=== PATIENT | male | born 1965 | race Caucasian/White ===

== ENCOUNTER → 2021-01-06 09:00 | Outpatient (CLI) | payer BC, SELFPAY ==
--- NOTE | ~2021-01-06 | MR_ITS ---
EXAMINATION: MR shoulder LT wo con DATE: 01/06/2021 09:40 INDICATION: Left rotator cuff tear. Left shoulder pain. TECHNIQUE: Magnetic resonance imaging (MRI) of the left shoulder was performed without intravenous co ntrast. Sequences included axial PD-weighted FS FSE, coronal oblique PD-weighted FS FSE and T2-weight ed FS FSE, and sagittal oblique T2-weighted FS FSE and T1-weighted FSE. COMPARISON: None. FINDINGS: Coracoacromial arch: The acromion undersurface is curved in morphology (type II). There is moderate acromioclavicular join t osteoarthritis including inferiorly directed osteophytes. There is mild subacromial/subdeltoid burs itis. Rotator cuff: There is mild supraspinatus and infraspinatus tendinopathy. There is an interstitial tear of distal s upraspinatus tendon measuring 8 mm anterior to posterior by 4 mm proximal to distal by 30% tendon thi ckness. Teres minor tendon is normal. There is mild subscapularis tendinopathy. There is no asymmetri c fatty atrophy of the rotator cuff muscle bellies. Biceps tendon and glenoid labrum: Biceps tendon is in bicipital groove. Intra-articular biceps tendon is normal. The glenoid labrum is normal. Fluid: There is no glenohumeral joint effusion. Bones/cartilage: The glenoid cartilage is normal. The humeral head cartilage is normal. IMPRESSION: 1. Partial-thickness interstitial tear of distal supraspinatus tendon. 2. Moderate acromioclavicular joint osteoarthritis. 3. Mild subacromial/subdeltoid bursitis. Reviewed, dictated and finalized at location A.
== END ==
PROVIDERS: Visit Provider Specialist
DX: M75.102 Unspecified rotator cuff tear or rupture of left shoulder, not specified as traumatic (principal); M75.112 Incomplete rotator cuff tear or rupture of left shoulder, not specified as traumatic; M19.012 Primary osteoarthritis, left shoulder; M75.52 Bursitis of left shoulder
CPT/HCPCS: 73221

== ENCOUNTER → 2023-09-05 16:19 | Outpatient (CLI) | payer BC, SELFPAY ==
--- NOTE | ~2023-09-05 | XR_ITS ---
EXAMINATION: XR chest 2V DATE: 09/05/2023 16:40 INDICATION: Acute sinusitis, unspecified. TECHNIQUE: Frontal and lateral views of the chest were obtained. COMPARISON: Chest 2 views 10/02/2017 FINDINGS: There is a 1 cm nodule in left lower lobe. No pleural effusion or pneumothorax. The heart s ize is normal. IMPRESSION: 1. 1 cm nodule in left lung lower lobe suspicious for primary bronchogenic carcinoma. Noncontrast [facility] st CT is recommended. Reviewed, dictated and finalized at location E. [employer] IMPRESSION: 1. 1 cm nodule in left lung lower lobe suspicious for primary bronchogenic carc inoma. Noncontrast chest CT is recommended.
== END ==
PROVIDERS: PCP Nurse Practitioner Family; Visit Provider Nurse Practitioner Family
DX: J01.90 Acute sinusitis, unspecified (principal); R91.1 Solitary pulmonary nodule
CPT/HCPCS: 71046

== ENCOUNTER → 2023-09-16 09:19 | Outpatient (CLI) | payer BC, SELFPAY ==
--- NOTE | ~2023-09-16 | CT_ITS ---
EXAMINATION: CT chest high resolution wo co DATE: 09/16/2023 09:37 INDICATION: Solitary pulmonary nodule TECHNIQUE: Computed tomography (CT) of the chest was performed without intravenous contrast. Automate d exposure control and iterative reconstruction technique were employed. Exam dose: 695.24 mGy-cm to juan exam DLP. COMPARISON: 09/05/2023 2 view chest: 1 cm nodule reported in left lower lobe suspicious for primary br onchogenic carcinoma FINDINGS: Approximately 7 x 9 mm calcified left lower lobe pulmonary nodule corresponding to the 09/05 chest radiographic finding, consistent with benign calcified left lower lobe pulmonary granulom a. There is focal posterior segment right upper lobe tree-in-bud infiltrate which might indicate infecti on or possibly fibrotic change. Recommend clinical correlation and perhaps [address] chest follow-up . The lungs otherwise are clear of infiltrate or consolidation or mass density. No hilar or mediastinal mass lesion or lymphadenopathy. Normal heart size. There is atherosclerotic calcification of the thoracic aorta but no thoracic aorti c aneurysm. Great vessel and some coronary calcifications. No pericardial or pleural effusion. Bilateral gynecomastia. Normal morphology of the adrenal glands. IMPRESSION: Left lower lobe calcified pulmonary granuloma Mild focal tree-in-bud infiltrate in the posterior segment of the right upper lobe, possibly due to i nfection or fibrotic change. Consider [address] chest follow-up Bilateral gynecomastia Reviewed, dictated and finalized at Location [facility]. Reviewed, dictated and finalized at location B. [employer] WORKER IMPRESSION: Left lower lobe calcified pulmonary granuloma Mild focal tree-in-bud infiltrate in the posterior segment of the right upper l obe, possibly due to infection or fibrotic change. Consider [address] chest fo llow-up Bilateral gynecomastia
== END ==
PROVIDERS: PCP Nurse Practitioner Family; Visit Provider Nurse Practitioner Family
DX: R91.1 Solitary pulmonary nodule (principal); J84.10 Pulmonary fibrosis, unspecified; N62 Hypertrophy of breast
CPT/HCPCS: 71250

== ENCOUNTER 2024-04-23 15:49 | Outpatient (CLI) | payer BC, SELFPAY ==
--- NOTE | ~2024-04-23 | CT_ITS ---
EXAMINATION: CT diagnostic chest wo con DATE: 04/23/2024 16:02 INDICATION: R91.1 - Solitary pulmonary nodule TECHNIQUE: Computed tomography (CT) of the chest was performed without intravenous contrast. Addition al 3D reconstructions utilizing coronal maximum intensity projection (MIP) were performed. Automated exposure control and iterative reconstruction technique were employed. The dose-length product was 32 9.41 mGy-cm. COMPARISON: CT dated 09/16/2023 FINDINGS: Calcite left lower lobe nodule consistent with old granulomatous disease. No other pulmonary nodules, pneumonia, pulmonary edema or pleural effusion. Heart size is normal. Atherosclerotic coronary arter y calcification and aortic valve calcific lesion. No pericardial effusion. Thoracic aorta is normal i n caliber. Mild bilateral gynecomastia. No pathologically enlarged thoracic lymphadenopathy. Mild dif fuse hepatic steatosis. Mild to moderate thoracic spondylosis. IMPRESSION: 1. Single calcified left lower lobe nodule consistent with old granulomatous disease. Resolution of t he prior tree-in-bud opacities with no other pulmonary nodules and requiring no further follow-up. Reviewed, dictated and finalized at location A. IMPRESSION: 1. Single calcified left lower lobe nodule consistent with old granulomatous di sease. Resolution of the prior tree-in-bud opacities with no other pulmonary no dules and requiring no further follow-up.
== END 2024-04-23 15:50 | disposition home or self-care (01) ==
LOC: MICIMG 15:50
PROVIDERS: PCP Nurse Practitioner Family; Visit Provider Nurse Practitioner Family
DX: R91.1 Solitary pulmonary nodule (principal)
CPT/HCPCS: 71250